=== PATIENT | male | born 1960 | race African-American/Black ===

== ENCOUNTER 2019-08-24 19:53 | Emergency (ER) | payer BC ==
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
== END 2019-08-24 22:02 | disposition home or self-care (01) ==
LOC: ERS 19:53
DX: S16.1XXA Strain of muscle, fascia and tendon at neck level, initial encounter (principal); R51 Headache; B20 Human immunodeficiency virus [HIV] disease; V43.52XA Car driver injured in collision with other type car in traffic accident, initial encounter
CPT/HCPCS: 70450; 72125